=== PATIENT | female | born 2000 | race Caucasian/White ===

== ENCOUNTER 2020-04-22 23:03 | Emergency (ER) | payer OTHER, SELFPAY ==
[2020-04-22] MEDS ORDERED: NA CHLORIDE 0.9% 1,000 ML ONE (23:43)
[2020-04-23 00:02] LABS: Absolute Lymphocytes (CBC) 1.8 K/uL (0.7-4.9); Hematocrit 42.8 % (36.0-45.0); Lymphocytes % 24.5 % (15.3-44.8); MPV 9.2 fL (7.6-11.3); RBC Red Blood Cell Count 4.86 M/uL (3.86-4.86)
[2020-04-23 00:13] LABS: BUN Blood Urea Nitrogen 10 mg/dL (7-18); Bicarbonate 24 mmol/L (21-32); Glucose Level 93 mg/dL (74-106); HCG, Quantitative 102 mIU/mL (1-3); Potassium 3.8 mmol/L (3.5-5.1); Sodium Level 143 mmol/L (136-145)
--- NOTE | 2020-04-23 00:40 | ER ---
Nurse's Notes [facility] Name: Miya Banner Age: 19 yrs Sex: Female : 2000 Arrival Date: 04/22/2020 Time: 23:07 Bed 20 Private MD: Diagnosis: Threatened Presentation: 04/22 23:12 Chief complaint: Patient states: Vag bleed, 4 wks PG. pt reports going to the bathroom ks7 at 2130 and noticed BRB in toilet and moderate amount of BRB on toilet paper. Pt c/o 12/21 lower abd pain. Denies N/V/D. Coronavirus screen: Client denies travel out of the [place] in the last 14 days. At this time, the client does not indicate any symptoms associated with coronavirus-19. The client denies any previous COVID testing. Ebola Screen: Patient negative for fever greater than or equal to 101.5 degrees Fahrenheit, and additional compatible Ebola Virus Disease symptoms Patient denies exposure to infectious person. Patient denies travel to an Ebola-affected area in the 21 days before illness onset. Initial Sepsis Screen: Does the patient meet any 2 criteria? No. Patient's initial sepsis screen is negative. Does the patient have a suspected source of infection? No. Patient's initial sepsis screen is negative. Risk Assessment: Do you want to hurt yourself or someone else? Patient reports no desire to harm self or others. Onset of symptoms was April 22, 2020 at 21:30. 23:12 Method Of Arrival: Ambulatory ks7 23:12 Acuity: GERARD 3 ks7 Triage Assessment: 23:22 General: Appears in no apparent distress. Behavior is calm, cooperative. Pain: ks7 Complains of pain in abdomen and pelvis Pain currently is 4 out of 10 on a pain scale. Quality of pain is described as crampy, Is intermittent. : Reports vaginal bleeding that is bright red, spotty, since 2129 tonight. CLIENT COORDINATOR: 23:22 1, LMP 03/20/2020 ks7 04/23 00:04 1, Full Term 0, Premature 0, 0, Living 0 eyal Historical: - Allergies: 04/22 23:22 No Known Allergies; ks7 - Home Meds: 23:22 Vitamin Oral tab 1 tab once daily [Active]; ks7 - PMHx: 23:22 Rheumatoid Arthritis; ks7 - Immunization history:: Adult Immunizations up to date. - Social history:: Smoking status: Patient denies any tobacco usage or history of. - Family history:: not pertinent. Screenin:25 Abuse screen: Denies threats or abuse. Denies injuries from another. Nutritional ks7 screening: No deficits noted. Tuberculosis screening: No symptoms or risk factors identified. Fall Risk None identified. Assessment: 23:25 Obstetrical Assessment: Patient reports abdominal cramping. ks7 23:25 Obstetrical Assessment: Patient reports vaginal bleeding starting at 2130 tonight.. ks7 04/23 00:00 Reassessment: Assumed care of patient from Silvia Lewis RN. Patient currently at ultrasound. 00:00 General: Appears in no apparent distress. uncomfortable, Behavior is cooperative, vc anxious. Pain: Denies pain. : Reports vaginal bleeding that is bright red, with clots. 00:00 Cardiovascular: Capillary refill < 3 seconds Patient's skin is warm and dry. 00:34 Reassessment: Patient appears in no apparent distress at this time. Patient and/or vc family updated on plan of care and expected duration. Pain level reassessed. Patient laying in bed with tears in her eyes, patient denies pain at this time. Vital Signs: 04/22 23:12 BP 118 / 67; Pulse 84; Resp 18; Temp 98.8(O); Pulse Ox 100% ; Weight 68.04 kg; Height 5 ks7 ft. 1 in. (154.94 cm); Pain 4/10; 23:12 Body Mass Index 28.34 (68.04 kg, 154.94 cm) ks7 Vitals: 04/23 00:01 Heart Tones patient only a few weeks , heart tones are not yet audible.. ED Course: 04/22 23:07 Patient arrived in ED. cf2 23:11 Conrado Nash MD is Attending Physician. eyal 23:12 Silvia Chase, RN is Primary Nurse. ks7 23:22 Triage completed. ks7 23:22 Arm band placed on left wrist. ks7 23:25 Patient has correct armband on for positive identification. Bed in low position. Call ks light in reach. Side rails up X2. 23:25 No provider procedures requiring assistance completed. ks7 23:25 Inserted saline lock: 20 gauge in right antecubital area, using aseptic technique. ks7 Blood collected. 23:58 Inserted. ks7 04/23 00:00 Primary Nurse role handed off by Silvia Chase, MALIK 00:00 Michelle Butler, MALIK is Primary Nurse. vc 00:10 Patient moved back from ultrasound. ks7 00:39 José Miguel Gray MD is Referral Physician. eyal 01:05 IV discontinued, intact, bleeding controlled, No redness/swelling at site. Pressure vc dressing applied. Administered Medications: 04/22 23:30 Drug: NS 0.9% 1000 ml Route: IV; Rate: 1 bolus; Site: right antecubital; ks7 04/23 00:30 Follow up: IV Status: Completed infusion; IV Intake: 1000ml vc Point of Care Testing: Urine : 00:35 hCG Reading: Positive; Control Reading: Positive; vc Intake: 00:30 IV: 1000ml; Total: 1000ml. vc Outcome: 00:39 Discharge ordered by . eyal 01:05 Discharged to home ambulatory. vc 01:05 Condition: good 01:05 Discharge instructions given to patient, Instructed on discharge instructions, follow up and referral plans. medication usage, Demonstrated understanding of instructions, follow-up care, medications, Prescriptions given X 1. 01:07 Patient left the ED. vc Signatures: Conrado Nash MD MD cha Frazier, Celesta cf2 Calcote, Vanessa, MALIK RN Silvia Chase, MALIK GAN ks7 Corrections: (The following items were deleted from the chart) 04/22 23:59 23:58 Inserted saline lock: 20 gauge in right antecubital area, using aseptic ks7 technique. Blood collected. ks7
--- NOTE | 2020-04-23 00:40 | EDPHYS ---
Physician Documentation [facility] Name: Miya Balderrama Age: 19 yrs Sex: Female : 2000 Arrival Date: 04/22/2020 Time: 23:07 Bed 20 Private MD: ED Physician Conrado Nash HPI: 04/23 00:04 This 19 yrs old Female presents to ER via Ambulatory with complaints of eyal Vaginal Bleeding, + Preg <12wks. 00:04 The patient presents to the emergency department with vaginal bleeding. [facility] 5 weeks. course: care: none. Previous pregnancies: the patient has never been . The patient has not experienced similar symptoms in the past. WELT SOLE LAYER: 04/22 23:22 1, LMP 03/20/2020 ks7 04/23 00:04 1, Full Term 0, Premature 0, 0, Living 0 eyal Historical: - Allergies: 04/22 23:22 No Known Allergies; ks7 - Home Meds: 23:22 Vitamin Oral tab 1 tab once daily [Active]; ks7 - PMHx: 23:22 Rheumatoid Arthritis; ks7 - Immunization history:: Adult Immunizations up to date. - Social history:: Smoking status: Patient denies any tobacco usage or history of. - Family history:: not pertinent. ROS: 04/23 00:04 Constitutional: Negative for fever, chills, and weight loss, Eyes: Negative for injury, eyal pain, redness, and discharge, ENT: Negative for injury, pain, and discharge, Neck: Negative for injury, pain, and swelling, Cardiovascular: Negative for chest pain, palpitations, and edema, Respiratory: Negative for shortness of breath, cough, wheezing, and pleuritic chest pain, Back: Negative for injury and pain, : Negative for injury, bleeding, discharge, and swelling, MS/Extremity: Negative for injury and deformity, Skin: Negative for injury, rash, and discoloration, Neuro: Negative for headache, weakness, numbness, tingling, and seizure, Psych: Negative for depression, anxiety, suicide ideation, homicidal ideation, and hallucinations, Allergy/Immunology: Negative for hives, rash, and allergies, Endocrine: Negative for neck swelling, polydipsia, polyuria, polyphagia, and marked weight changes, Hematologic/Lymphatic: Negative for swollen nodes, abnormal bleeding, and unusual bruising. Abdomen/GI: Positive for abdominal pain. Exam: 00:04 Constitutional: This is a well developed, well nourished patient who is awake, alert, eyal and in no acute distress. Head/Face: Normocephalic, atraumatic. Eyes: Pupils equal round and reactive to light, extra-ocular motions intact. Lids and lashes normal. Conjunctiva and sclera are non-icteric and not injected. Cornea within normal limits. Periorbital areas with no swelling, redness, or edema. ENT: Nares patent. No nasal discharge, no septal abnormalities noted. Tympanic membranes are normal and external auditory canals are clear. Oropharynx with no redness, swelling, or masses, exudates, or evidence of obstruction, uvula midline. Mucous membranes moist. Neck: Trachea midline, no thyromegaly or masses palpated, and no cervical lymphadenopathy. Supple, full range of motion without nuchal rigidity, or vertebral point tenderness. No Meningismus. Chest/axilla: Normal chest wall appearance and motion. Nontender with no deformity. No lesions are appreciated. Cardiovascular: Regular rate and rhythm with a normal S1 and S2. No gallops, murmurs, or rubs. Normal PMI, no JVD. No pulse deficits. Respiratory: Lungs have equal breath sounds bilaterally, clear to auscultation and percussion. No rales, rhonchi or wheezes noted. No increased work of breathing, no retractions or nasal flaring. Abdomen/GI: Soft, non-tender, with normal bowel sounds. No distension or tympany. No guarding or rebound. No evidence of tenderness throughout. Back: No spinal tenderness. No costovertebral tenderness. Full range of motion. Skin: Warm, dry with normal turgor. Normal color with no rashes, no lesions, and no evidence of cellulitis. MS/ Extremity: Pulses equal, no cyanosis. Neurovascular intact. Full, normal range of motion. Neuro: Awake and alert, GCS 15, oriented to person, place, time, and situation. Cranial nerves II-XII grossly intact. Motor strength 5/5 in all extremities. Sensory grossly intact. Cerebellar exam normal. Normal gait. Psych: Awake, alert, with orientation to person, place and time. Behavior, mood, and affect are within normal limits. Vital Signs: 08/10 23:12 BP 118 / 67; Pulse 84; Resp 18; Temp 98.8(O); Pulse Ox 100% ; Weight 68.04 kg; Height 5 ks7 ft. 1 in. (154.94 cm); Pain /10; 23:12 Body Mass Index 28.34 (68.04 kg, 154.94 cm) ks7 MDM: 23:11 [facility] screened. [facility] 04[facility] 00:06 Differential diagnosis: ectopic . Data reviewed: vital signs, nurses notes, [facility] lab test result(s), radiologic studies, ultrasound. Data interpreted: gambling monitor: rate is 84 beats/min, rhythm is regular, Pulse oximetry: on room air is 100 %. Test interpretation: by ED physician or midlevel provider:. Counseling: I had a detailed discussion with the patient and/or guardian regarding: the historical points, exam findings, and any diagnostic results supporting the discharge/admit diagnosis, lab results, radiology results, the need for outpatient follow up, for definitive care, an OB/Gyne specialist. 04/22 23:13 Order name: Quantitative Hcg [facility] 04/22 23:13 Order name: Abo/rh Typing [facility] 04/22 23:13 Order name: Basic Metabolic Panel [facility] 04/22 23:13 Order name: CBC with Diff [facility] 04/22 23:13 Order name: Urine Culture [facility] 04/23 00:12 Order name: CBC with Automated Diff; Complete Time: 00:38 [facility] 04/22 23:13 Order name: Urine Test (obtain specimen); Complete Time: 00:25 [facility] 04/22 23:13 Order name: US Transvaginal Ob [facility] 04/23 00:14 Order name: Basic Metabolic Panel; Complete Time: 00:38 [facility] 04/23 00:14 Order name: HCG, Quantitative; Complete Time: 00:38 [facility] 04/23 00:23 Order name: ABO/RH typing; Complete Time: 00:38 [facility] 04/23 00:38 Order name: Urine --Ancillary (enter results) [facility] 04/23 00:40 Order name: Urine Dipstick--Ancillary (enter results) [facility] 04/22 23:13 Order name: IV Saline Lock; Complete Time: 23:28 [facility] 04/22 23:13 Order name: Labs collected and sent; Complete Time: 23:28 [facility] 04/22 23:13 Order name: NPO; Complete Time: 23:28 [facility] 04/22 23:13 Order name: Urine Dipstick-Ancillary (obtain specimen); Complete Time: 00:25 [facility] Administered Medications: 04/22 23:30 Drug: NS 0.9% 1000 ml Route: IV; Rate: 1 bolus; Site: right antecubital; ks7 04/23 00:30 Follow up: IV Status: Completed infusion; IV Intake: 1000ml vc Point of Care Testing: Urine : 00:35 hCG Reading: Positive; Control Reading: Positive; vc Disposition: 04/23/20 00:39 Discharged to Home. Impression: Threatened . - Condition is Stable. - Discharge Instructions: Threatened Miscarriage, Vaginal Bleeding During , First Trimester, First Trimester of , [id number], Threatened Miscarriage, [id number], Pelvic Rest. - Prescriptions for Vitamin 27- 0.8 mg Oral Tablet - take 1 tablet by ORAL route once daily; 30 tablet. - Medication Reconciliation Form, Thank You Letter, Antibiotic Education, Prescription Opioid Use form. - Follow up: Private Physician; When: 2 - 3 days; Reason: Recheck today's complaints, Continuance of care, Re-evaluation by your physician. Follow up: José Miguel Gray; When: 2 - 3 days; Reason: Recheck today's complaints, Continuance of care, Re-evaluation by your physician. - Problem is new. - Symptoms have improved. Signatures: Dispatcher [employer] EDConrado Cuevas MD MD cha Calcote, Vanessa RN Silvia Duong vc, RN RN ks7 Corrections: (The following items were deleted from the chart) 01:07 00:39 04/23/2020 00:39 Discharged to Home. Impression: Threatened . Condition vc is Stable. Discharge Instructions: Threatened Miscarriage, Vaginal Bleeding During , First Trimester, First Trimester of , [id number], Threatened Miscarriage, [id number], Pelvic Rest. Prescriptions for Vitamin 27-0.8 mg Oral Tablet - take 1 tablet by ORAL route once daily; 30 tablet. and Forms are Medication Reconciliation Form, Thank You Letter, Antibiotic Education, Prescription Opioid Use. Follow up: Private Physician; When: 2 - 3 days; Reason: Recheck today's complaints, Continuance of care, Re-evaluation by your physician. Follow up: José Miguel Gray; When: 2 - 3 days; Reason: Recheck today's complaints, Continuance of care, Re-evaluation by your physician. Problem is new. Symptoms have improved. eyal
[2020-04-23 01:13] VITALS: BP 118/67; TEMP 98.8; O2SAT 100
--- NOTE | 2020-04-23 08:08 | RAD REPORT ---
EXAM DESCRIPTION: US - Transvaginal OB - 04/23/2020 6:58 am CLINICAL HISTORY: vaginal bleeding, positive study, possible miscarriage COMPARISON: No comparisons FINDINGS: No intrauterine gestational sac or sac remnant identifiable. Endometrial stripe is maximum 5 mm in thickness. There is a trace amount of fluid or old blood in the cervix and lower uterine seg ment. No retained products of conception identifiable. Uterine size is normal. No myometrial mass. A large 4.2 centimeter anechoic left ovarian cyst is present. Right ovary is unremarkable. No finding s to suspect ectopic . IMPRESSION: No intrauterine gestational sac or sac remnant. No retained products of conception seen. Patient has a large 4.2 centimeter anechoic left ovarian cyst. No suspicion for ectopic .
[2020-04-23 11:01] LABS: Urine Blood 2+ (NEG); Urine Glucose NEGATIVE (NEG); Urine Protein NEGATIVE (NEG); Urine Specific Gravity >1.030 (1.005-1.030); Urine pH 5.5 (5.0-7.0)
[2020-04-23 11:02] LABS: Urine Specific Gravity >1.030 (1.005-1.030)
== END 2020-04-23 01:07 | disposition home or self-care (01) ==
LOC: ER 23:03
DX: O20.0 Threatened abortion (principal); Z3A.01 Less than 8 weeks gestation of pregnancy
CPT/HCPCS: 36415; 76817; 80048; 81003; 81025; 84702; 85025; 86900; 86901; 96360; 99284; J7030

== ENCOUNTER 2022-05-23 17:30 | Emergency (ER) | payer OTHER, SELFPAY ==
--- OUTSIDE RECORDS SUMMARY | 2022-05-23 17:34 | XMS REPORT | Continuity of Care Document ---
:2000 Author Organization [facility] t Address [address] [place] [address] Care Team Providers Name Role Phone Tiffany Nicholson Primary Care Physician YOKASTA PHILIPPE Attending Clinician Unavailable Mita Brumfield MA Attending Clinician Unavailable 5, [facility] Us Room Attending Clinician Unavailable Christian Ellison MD Attending Clinician CHRISTIAN ELLISON Attending Clinician Unavailable CHRISTIAN ELLISON Attending Clinician Unavailable Salbador Mark MD Attending Clinician SALBADOR MARK Attending Clinician Unavailable ALFREDO Attending Clinician Unavailable JULISSA GARZA Attending Clinician Unavailable LASHAUN BERG M.D. Attending Clinician Unavailable SALBADOR MARK Admitting Clinician Unavailable ALFREDO Admitting Clinician Unavailable Payers Payer Name Policy Type Policy Number Effective Date Expiration Date [facility] [id number] 2022 [facility] MEDICAID 00:00:00 [place] CHILDRENS [id number] 2019 HEALTH 00:00:00 Problems Condition Condition Condition Status Onset Resolution Last Treating Co mments Source Name Details Category Date Date Treatment Clinician Date Supervisio Supervisio Disease Active U nivers n of n of 8-31 it[place] of high[place] Med[place] with with Branch insufficie insufficie nt nt care in care in third third trimester trimester Gastroesop Gastroesop Disease Active U nivers hageal hageal 05-13 ity of reflux reflux 00:00: [place] disease, disease, 00 Medica l unspecifie unspecifie Br anch d whether d whether esophagiti esophagiti s present s present Anxiety Anxiety Disease Active Univers disorder, disorder, 05-13 ity of [place] type d type 00 Medical Branch Depression Depression Disease Active U nivers during during 05-13 [place] in third in third 00 Medica l trimester trimester Bran ch Left ankle Left ankle Disease Active U nivers injury injury 05-19 ity of 00:00: [place] 00 Medical Branch History 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 ans Pain and Pain and Problem Active UT swelling swelling Physic i of right of right ans knee knee 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 Phys ici ans Long-term Long-term Problem Active UT use of use of Physici high-risk high-risk ans medication medication Allergies, Adverse Reactions, Alerts Allergy Allergy Status Severity Reaction(s) Onset Inactive Treating Comm ents Source Name Type Date Date Clinician NO KNOWN Drug Active Univers ALLERGIE Class ity of S [facility] Family History Family Member Diagnosis Comments Start Date Stop Date Source Unknown Family Family history of Family History [facility] Member cardiac disorder Unknown Family Family history of Family History [facility] Member diabetes mellitus Social History Social Habit Start Date Stop Date Quantity Comments Source ASSERTION 2021-10-30 [facility] 00:00:00 [facility] Exposure to 2022-05-03 2022-05-13 Not sure [facility] SARS-CoV-2 00:00:00 08:52:00 [facility] (event) [place] Tobacco use and 2022-05-13 2022-05-13 Smokeless tobacco Un iversity of exposure 00:00:00 00:00:00 non-user [facility] Alcohol intake 2022-05-13 2022-05-13 Ex-drinker University of 00:00:00 00:00:00 (finding) [facility] Tobacco Comment 2022-05-13 2022-05-13 Half a pack per [facility] ersity of 00:00:00 00:00:00 day [facility] History of 2022-02-11 Passive smoker University of tobacco use 00:00:00 [facility] Sex Assigned At 2000 2000 Universit y of 00:00:00 00:00:00 [facility] Smoking Status Start Date Stop Date Source Tobacco smoking [place] consumption unknown Medical Bran ch Never smoker [facility] Ex-smoker 2022-05-13 00:00:00 2022-05-13 [place] f [place] 00:00:00 [facility] Medications Ordered Filled Start Stop Current Ordering Indication Dosage Frequency Signature Comments Components Source Medication Medication Date Date Medication? Clinician (SIG) Name Name PNV Yes Take by Univers no.95/anam 8-31 mouth. ity of us 10:01: [place] fum/folic [address] [place] [address] ( ORAL) PNV 0 Yes Take by Univers no.95/anam 8-31 mouth. ity of us 10:01: [place] fum/folic [address] [place] [address] ( ORAL) PNV 0 Yes Take by Univers no.95/anam 8-31 mouth. ity of us 10:01: [place] fum/folic [address] [place] [address] ( ORAL) famotidine 2021-0 Yes [id number] 20mg Take 1 Univers 20 mg 8-31 tablet by ity of tablet 00:00: mouth in [place] [address] the Medical morning Branch and 1 tablet in the evening. busPIRone 2021-0 Yes [id number] 7.5mg Take 1 Univers 7.5 mg 8-31 tablet by ity of tablet 00:00: mouth in [place] [address] the Medical morning Branch and 1 tablet in the evening. famotidine 2021-0 Yes [id number] 20mg Take 1 Univers 20 mg 8-31 tablet by ity of tablet 00:00: mouth in [place] [address] the Medical morning Branch and 1 tablet in the evening. busPIRone 2021-0 Yes [id number] 7.5mg Take 1 Univers 7.5 mg 8-31 tablet by ity of tablet 00:00: mouth in [address] Medical morning Branch and 1 tablet in the evening. famotidine Yes [id number] 20mg Take 1 Univers 20 mg 8-31 tablet by ity of tablet 00:00: mouth in [place] 00 the Medical morning Branch and 1 tablet in the evening. busPIRone Yes [id number] 7.5mg Take 1 Univers 7.5 mg 8-31 tablet by ity of tablet 00:00: mouth in [place] 00 the [facility] morning Branch and 1 tablet in the evening. Rasuvo 15 Rasuvo 15 2018-09 Yes FAYYAZ Inject UT MG/0.3ML MG/0.3ML 0-17 AHMED M.D. 15mg subq Physici Subcutaneou Subcutaneou 00:00: once ans s Solution s Solution 00 weekly. Auto-inject Auto-inject or or Folic Acid Folic Acid Yes FAYYAZ QD TAKE 1 UT 1 MG Oral 1 MG Oral 9-12 AHMED M.D. TABLET BY Physici Tablet Tablet 00:00: MOUTH ans 00 DAILY DIRECTED Naproxen Naproxen Yes FAYYAZ Q12H TAKE 1 U T 375 MG Oral 375 MG Oral 9-12 AHMED M.D. TABLET Physici Tablet Tablet 00:00: EVERY 12 ans 00 HOURS NEEDED. acetaminoph Yes TK 1 T PO U nivers en-codeine 05-11 Q 6 H PRN ity of 300-30 mg 00:00: P. [place] tablet 00 [facility] acetaminoph 2021- No TK 1 T PO Univers en-codeine 05-11- Q 6 H PRN ity of 300-30 mg 00:00: 00:00 P. [place] tablet 00 :00 [facility] Vital Signs Vital Name Observation Time Observation Value Comments Source Systolic blood 2022-05-13 14:59:00 105 mm[Hg] Univer sity of pressure [facility] Diastolic blood 2022-05-13 14:59:00 72 [facility]Hg[facility] 2022-05-13 14:59:00 108 /min [facility] Body temperature 2022-05-13 14:59:00 [facility].72 [facility] height 2022-05-13 14:59:00 152.4 cm [facility] Body weight 2022-05-13 14:59:00 77.656 kg [facility] BMI 2022-05-13 14:59:00 33.44 kg/m2 [facility] BP Systolic 2019-08-03 10:47:00 113 mm[Hg] [facility] BP Diastolic 2019-08-03 10:47:00 72 mm[Hg] [facility] Height 2019-08-03 10:47:00 61 [in_us] [facility] Weight 2019-08-03 10:47:00 145 [lb_av] [facility] Body Mass Index 2019-08-03 10:47:00 27.4 kg/m2 [facility] Calculated Heart Rate 2019-08-03 10:47:00 79 /min [facility] BP Systolic 2019-06-29 10:35:00 125 mm[Hg] [facility] BP Diastolic 2019-06-29 10:35:00 82 mm[Hg] [facility] Height 2019-06-29 10:35:00 60 [in_us] [facility] Weight 2019-06-29 10:35:00 150 [lb_av] [facility] Body Mass Index 2019-06-29 10:35:00 29.3 kg/m2 [facility] Calculated Heart Rate 2019-06-29 10:35:00 101 /min [facility] BP Systolic 2019-05-25 10:21:00 114 mm[Hg] [facility] BP Diastolic 2019-05-25 10:21:00 74 mm[Hg] [facility] Height 2019-05-25 10:21:00 60 [in_us] [facility] Weight 2019-05-25 10:21:00 150 [lb_av] [facility] Body Mass Index 2019-05-25 10:21:00 29.3 kg/m2 [facility] Calculated Heart Rate 2019-05-25 10:21:00 72 /min [facility] Procedures Procedure Date / Time Performing Clinician Source Performed SECOND AND THIRD 2022-05-19 16:44:00 Salbador Mark [facility] TRIMESTER ULTRASOUND Medical [facility] POCT URINALYSIS W/O 2022-05-13 00:00:00 Mark, Salbador [facility] SPECIFIC [facility] [QLH] CBC (INCLUDES 2019-08-03 00:00:00 [facility] DIFF/PLT) [QLH] C-REACTIVE PROTEIN 2019-08-03 00:00:00 [facility] [QLH] CREATININE W/EGFR 2019-08-03 00:00:00 [facility] [QLH] HEPATIC FUNCTION 2019-08-03 00:00:00 [facility] PANEL [QLH] SED RATE BY 2019-08-03 00:00:00 [facility] ans MODIFIED WESTERGREN [QLH] UREA NITROGEN 2019-08-03 00:00:00 [facility] (BUN) [QLH] HEPATIC FUNCTION 2019-05-25 00:00:00 [facility] PANEL [QLH] CBC (INCLUDES 2019-05-25 00:00:00 [facility] DIFF/PLT) [QLH] C-REACTIVE PROTEIN 2019-05-25 00:00:00 [facility] [QLH] CREATININE W/EGFR 2019-05-25 00:00:00 [facility] [QLH] SED RATE BY 2019-05-25 00:00:00 [facility] ans MODIFIED WESTERGREN [QL] JEOVANNY SCREEN IFA 2019-05-25 00:00:00 [facility] W/REFL TITER IFA [QH] HEPATITIS B SURFACE 2019-05-25 00:00:00 [facility] ANTIGEN W/REFL CONFIRM [QLH] HEPATITIS C 2019-05-25 00:00:00 [facility] ans ANTIBODY [QLH] UREA NITROGEN 2019-05-25 00:00:00 [facility] (BUN) [QH] CYCLIC 2019-05-25 00:00:00 [facility] s CITRULLINATED PEPTIDE (CCP) AB (IGG) [QLH] HLA-B27, DNA 2019-05-25 00:00:00 [facility] ians TYPING [QLH] RHEUMATOID FACTOR 2019-05-25 00:00:00 [facility] [QL] QUANTIFERON(R)-TB 2019-05-25 00:00:00 [facility] GOLD [QLH] SJOGRENS 2019-05-25 00:00:00 [facility] ANTIBODIES (SS-A,SS-B) XRAY Knee 3 views [id number] 2019-05-25 00:00:00 [facility] History of Ankle surgery [facility] Plan of Care Planned Activity Planned Date Details Comments Source Diagnostic Test 2019-11-20 00:00:00 [QLH] CBC (INCLUDES [facility] Pending DIFF/PLT) [code = [QLH] CBC (INCLUDES DIFF/PLT)] Diagnostic Test 2019-11-20 00:00:00 [QLH] C-REACTIVE [facility] Pending PROTEIN [code = [QLH] C-REACTIVE PROTEIN] Diagnostic Test 2019-11-20 00:00:00 [QLH] CREATININE [facility] Pending W/EGFR [code = [QLH] CREATININE W/EGFR] Diagnostic Test 2019-11-20 00:00:00 [QLH] HEPATIC [facility] Pending FUNCTION PANEL [code = [QLH] HEPATIC FUNCTION PANEL] Diagnostic Test 2019-11-20 00:00:00 [QLH] UREA NITROGEN [facility] Pending (BUN) [code = [QLH] UREA NITROGEN (BUN)] Diagnostic Test 2019-11-20 00:00:00 [QLH] SED RATE BY [facility] Pending MODIFIED WESTERGREN [code = [QLH] SED RATE BY MODIFIED WESTERGREN] Encounters Start End Encounter Admission Attending Care Care Encounter Source Date/Time Date/Time Type Type Clinicians Facility Department ID 2022-05-26 2022-05-26 Outpatient Martine PHILIPPE [facility] [id number] Univers 14:45:00 14:45:00 YOKASTA [id number] [facility] 2022-05-26 2022-05-26 Outpatient Martine PHILIPPE [facility] [id number] Univers 14:45:00 14:45:00 YOKASTA [facility] 2022-05-22 2022-05-22 Patient Brissa, [facility] GU[facility] [id number] Univers 00:00:00 00:00:00 Secure Msg Mita LONG [id number] ity of PEDIATRIC [id number] [place] [facility] [id number] [address] 2022-05-19 2022-05-19 Financial Sales Associate 5, [facility] Us Room UNIVERSIT [id number] Univers 11:00:00 11:55:55 Visit Christian Ellison [facility] [id number] ity of CLINICS [id number] [id number] [facility] [address] [place] 2022-05-19 2022-05-19 Outpatient R [facility] [id number] Univers 11:00:00 11:00:00 [id number] ity of [facility] 2022-05-19 2022-05-19 Outpatient P CHRISTIAN ELLISON [facility] [id number] Univers 11:00:00 11:00:00 CHRISTIAN ELLISON ity of [facility] 2022-05-13 2022-05-13 [facility] [id number] Univers 10:00:00 11:06:33 Ben LICONA [id number] ity of Visit [id number] [facility] [id number] [place] [address] 2022-05-13 2022-05-13 Outpatient R MARK [facility] [id number] Univers 10:00:00 11:06:33 ity of [facility] 2022-05-13 2022-05-13 Outpatient R JAS [facility] [id number] Univers 10:00:00 10:00:00 [id number] ity [facility] 2022-05-08 2022-05-08 [facility] Jas [facility] [id number] Univers 15:24:08 23:59:00 Encounter Cam ANGLESHARI [id number] ity of [id number] [id number] [facility] [address] 2022-05-08 2022-05-08 Outpatient R JAS [facility] [id number] Univers 15:24:08 23:59:00 ity of [facility] 2022-05-08 2022-05-08 Outpatient R JAS [facility] [id number] Univers 15:45:00 15:45:00 [id number] ity [facility] 2022-05-04 2022-05-04 Outpatient SALBADOR GUZMAN [facility] [id number] Univers 16:15:00 16:15:00 [id number] [facility] 2022-05-04 2022-05-04 Outpatient SALBADOR GUZMAN [facility] [id number] Univers 00:00:00 00:00:00 [facility] 2021-08-13 2021-08-13 Outpatient FRANCO_HOLLAND GARCÍA [facility] [id number] [place] 05:53:00 05:53:00 SSA [facility] 2020-05-06 2020-05-06 Outpatient R KAYLA [facility] [id number] Univers 14:30:00 14:30:00 JULISSA [id number] [facility] 2020-05-06 2020-05-06 Outpatient R KAYLA [facility] [id number] Univers 14:30:00 14:30:00 JULISSA [facility] 2020-04-17 2020-04-17 Outpatient SWEETIE GARCÍA [facility] [id number] [place] 04:00:00 04:00:00 SSA [facility] 2019-08-03 2019-08-03 Appointmen CORINNA BERG [facility] [id number] [place] 10:45:00 10:45:00 t; LASHAUN BERG lty - Phys ici FAYYAZ, M.D. [place] ans M.D. 2019-06-29 2019-06-29 Appointmen CORINNA BERG [facility] [id number] [place] 11:00:00 11:00:00 t; LASHAUN BERG lty - Phys ici FAYYAZ, M.D. [place] ans M.D. 2019-05-25 2019-05-25 Appointmen CORINNA BERG [facility] [id number] [place] 10:00:00 10:00:00 t; LASHAUN BERG lty - Phys ici FAYYAZ, M.D. [place] ans M.D. Results Test Description Test Time Test Comments Results Result Comments Source POCT URINALYSIS W/O SPECIFIC GRAVITY 2022-05-13 15:18:00 Test Item Value Reference Range Interpretation Comme nts POCT PH U (test code = 3254) n/a 5-8 POCT U LEUK EST (test code = 3263) n/a Negative - Negative POCT U NIT (test code = 3262) n/a Negative - Negative POCT U PROT (test code = 3259) Negative Negative - Negative POCT U GLU (test code = 3256) normal Negative - Negative POCT U KETONE (test code = 3258) n/a Negative - Negative POCT U BLD (test code = 3257) n/a Negative - Negative [facility] [id number] 16:21:12 Test Item Value Reference Range Interpretation Comments VARICELLA ZOSTER IgG 15 INDEX SEE BELOW L INTERP RETATION VZV IgG (test code = 09195) NEGATIVE . . . . . . . . . . . . INDEX <135 EQUIVOCAL. . . . . . . . . . . . INDEX 1 35-164 NOTE: CONSIDER RETESTING IN A CLINICALLY SUITABLE PERIOD OF TIME, NO SOONER THAN 1-2 WEEKS. POSITIVE . . . . . . . . . . . . INDEX >=165 GLUCOSE, 1 HR, GESTATIONAL SCREEN, 50 GM [id number] 08:16:58 Test Item Value Reference Range Interpretation Comments GLUCOSE 1 HR POST 114 MG/DL <140 UNLESS OT HERWISE 50 GM (test code = INDICATED , ALL TESTING 2005) PERFORMED [facility] [address] [place], [place] [address]A [facility] DIRECTOR: RACH BARNES M.D. IA NUMBER [id number] CAP ACCREDITATION N O. [id number] OBSTETRIC PANEL + [id number] 06:09:56 Test Item Value Reference Range Interpretation Comments WBC (test code = 11.4 K/UL 3.5-11.0 H 1001) RBC (test code = 3.48 M/UL 3.80-5.40 L 1002) HEMOGLOBIN (test 10.5 G/DL 11.5-15.5 L code = 1003) HEMATOCRIT (test 30.9 % 34.0-45.0 L code = 1004) MCV (test code = 88.8 fL 80.0-99.0 1005) MCH (test code = 30.2 PG 25.0-33.0 1006) MCHC (test code = 34.0 G/DL 31.0-36.0 1007) RDW (test code = 12.1 % 11.5-15.0 1038) NEUTROPHILS (test 75.4 % code = 1008) LYMPHOCYTES (test 15.8 % code = 1010) MONOCYTES (test 5.3 % code = 1011) EOSINOPHILS (test 2.6 % code = 1012) BASOPHILS (test 0.9 % code = 1013) PLATELET COUNT 350 K/UL 130-400 (test code = 1015) ABSOLUTE 8.17 K/UL 1.50-7.50 H NEUTROPHILS (test code = 1066) ABSOLUTE 1.53 K/UL 1.00-4.00 LYMPHOCYTES (test code = 1067) ABSOLUTE MONOCYTES 0.64 K/UL 0.20-1.00 (test code = 1068) ABSOLUTE 0.38 K/UL 0.00-0.50 EOSINOPHILS (test code = 1040) ABSOLUTE BASOPHILS 0.09 K/UL 0.00-0.20 (test code = 1069) ABS IMMATURE 0.60 K/UL 0.00-0.10 H GRANULOCYTES (test code = 1020) ABS NUCLEATED RBCS 0.00 K/UL 0.00-0.11 (test code = 58182) COMMENTS (test code (NOTE) SLIGHT TOXIC = 1016) GRANULATION PLATELETS APPEA R NORMAL BLOOD TYPE AND RH A POSITIVE A HISTORI MARGARETTE RECORD (test code = 3901) CHECK FOR PREVIOUS RESULTS IS NOT PERFORMED.THESE RESULTS SHOULD BE CORRELATED WITH RESULTS OF PRIO R BLOODTYPING AND ANTIBODY SCREEN STUDIES. ANTIBODY SCREEN NEGATIVE NEGATIVE A HISTORICA L RECORD (test code = 3902) CHECK FOR PREVIOUS RESULTS IS NOT PERFORMED.THESE RESULTS SHOULD BE CORRELATED WITH RESULTS OF PRIO R BLOODTYPING AND ANTIBODY SCREEN STUDIES. RUBELLA ANTIBODY 43 IU/ML SEE BELOW INTERPRET ATION SCREEN (test code = RUBELLA IgG 4600) NON-REACTIVE/NO N-IMM UNE . . . . . . . IU/ML <10 REACTIVE/IMMUNE . . . . . . . . . . . IU/ML >=10 RUBELLA IgG INTERP REACTIVE REACTIVE (test code = 79335) HEPATITIS B SURF AG NON-REACTIVE NON-REACTIVE (test code = 2739) RPR (test code = NON-REACTIVE NON-REACTIVE 24466) RPR TITER (test NOT INDIC. NOT INDIC. code = 3500) TITER HIV 1/2 4TH GEN, NON-REACTIVE NON-REACTIVE RFLX CONF (test code = 3514) HEPATITIS C REFLEX [id number] 06:09:56 Test Item Value Reference Range Interpretation Comments HEPATITIS C ANTIBODY (test code NON-REACTIVE NON-REACTIVE = 4675) DRUG ABUSE SCREEN 10 REFLEX [id number] 05:48:51 Test Item Value Reference Range Interpretation Comments AMPHETAMINES (test NEGATIVE NEGATIVE code = 3201) BARBITURATES (test NEGATIVE NEGATIVE code = 3202) BENZODIAZEPINES (test NEGATIVE NEGATIVE code = 3203) CANNABINOIDS (test NEGATIVE NEGATIVE code = 3204) COCAINE METABOLITE NEGATIVE NEGATIVE (test code = 3205) OPIATES (test code = NEGATIVE NEGATIVE 3209) OXYCODONE (test code NEGATIVE NEGATIVE = 40616) PHENCYCLIDINE (test NEGATIVE NEGATIVE code = 3210) METHADONE (test code NEGATIVE NEGATIVE = 3207) BUPRENORPHINE (test NEGATIVE NEGATIVE code = 46992) SOURCE (test code = URINE SEE BELOW FOR 000496) THRESHOLDS AND IMPORTANT METHOD NOTES * ANALYTE SCREENING CUTOF F CONFIRMATORY CUTOFF AMPHETAMINES 50 0 NG/ML 100 NG/MLBARBIT URATES 200 NG/ML 100 NG/MLBENZODIAZE PINES 200 NG/ML 100 NG/MLCANNABINOI DS (THC) 20 NG/ML 15 NG/ MLCOCAINE METABOLITES 150 NG/ML 100 NG/MLOPIATE MET ABOLITES 300 NG/ML 100 NG/MLOXYCODONE 100 NG/ML 100 NG/MLPHENCY CLIDINE (PCP) 25 NG/ML 25 NG/MLMETHADONE 300 NG/ML 100 NG/MLBUPREN ORPHINE 5 NG/ML 5 NG/ML N OTE: Screening metho dology is qualitative Enz yme Immunoassay.The screening method may be l ess sensitive for c ertain medicationsincl uding clonazepam and lorazepam in the benzodia zepine assay andtramad ol or fentanyl in the opiate assay, amongst others. Patientcomplian ce, hydration statu s, timing and dose of med ications, drugabsorption and specimen qualit y may affect screenin g assay.For clini margarette discrepancies, consider directed testin g for specificcompoun ds or contact the lab oratory within specimen stability toforward for confirmatory te sting. This test is sp ecified for medicalpurp oses only. It is not valid for forensic use. [id number] 05:21:26 Test Item Value Reference Range Interpretation Comments RPR RESULT (test code = NON-REACTIVE NON-REACTIVE 3501) RPR TITER (test code = 3500) NOT INDIC. TITER NOT INDIC. CULTURE, [id number] 06:58:14SPECIMEN NUMBER: [id number] CULTURE, URINE SPECIMEN NUMBER: [id number] SPECIMEN COMMENT: URINE SOURCE:URINE REPORT STATUS: FINAL FINAL REPORT: 04/25/2022 10-50,000 CFU/ML UROGENITAL CURTIS PRESENT NO COMM ON PATHOGENS UNLESS OTHERWISE INDICATED, ALL TESTING PERFORMED [facility] [employer] [employer] [address] [place] [address] MOTORCYCLE MAKER: RACH BARNES M.D. CLIA NUMBER [id number] [place]. [id number] TEST, THINPREP, [id number] 21:58:35 Test Item Value Reference Range Interpretation Comments SOURCE: (test Cervical/Endo code = 8001) cervical SLIDES: (test 1 code = 8011) LMP: (test code = 10/16/2021 8021) SPECIMEN (NOTE) Satisfactory f or ADEQUACY: (test evaluation. code = 73687) Endocervical cells/transform ation zone component present. INTERPRETATION: NILM/NO (test code = EPITH. --------- 39570) ABNORMALITY;S -------- EE BELOW NEGATIVE FO R INTRAEPITHELIAL LESION OR MALIGNANCY ( NILM) --------- --------- --------- - MERCHANDISE FLOW TEAM LEADER: Ceci (test code = Brian, 8101) CT(ASCP) LOCATION: (test (NOTE) Specimens pr ocessed and code = 80494) interpreted at [facility], [address] [place] [address], , CLIA: [id number] CPT: (test code = (NOTE) 96707 UNLE SS OTHERWISE 8140) INDICATED, COMP UTER AIDED AND CYTOTECHNOLOGIS T SCREENING PERFO RMED. The Pap test is a s creening test with an in herent, but low probabi lity of error. Your pat ient should be remin ded to consult you imm ediately if she experien negar any suspicious sign s or symptoms, regar dless of her Pap test re sult. An alternate repor t format containing imag es or consolidated pr ior Pap history is avai lable as applicable. UNL ESS OTHERWISE INDIC ATED, ALL TESTING PERFORM ED [facility], I [place]. [address] [place] [address] LABORATORY DIRE CTOR: RACH SKY M.D. CLIA NUMBER [id number] [place] [id number] CT/NG, TMA, [id number] 21:54:17 Test Item Value Reference Range Interpretation Comments GONORRHEA, TMA NEGATIVE NEGATIVE Assay method ology is (test code = nucleic acid am plification 08282) by transcriptio n mediated amplification ( TMA) utilizing the A ptima Combo 2 Assay. CHLAMYDIA, TMA NEGATIVE NEGATIVE Assay method ology is (test code = nucleic acid am plification 75785) by transcriptio n mediated amplification ( TMA) utilizing the A ptima Combo 2 Assay. [[facility]] CBC (INCLUDES DIFF/PLT)2019-08-03 11:51:00 Test Item Value Reference Range Interpretation Comments WHITE BLOOD CELL COUNT 6.4 {Thousand/u} 4.5-13.0 N (test code = WHITE BLOOD CELL COUNT) RED BLOOD CELL COUNT (test 4.53 {Million/uL} 3.80-5.10 N code = RED BLOOD CELL COUNT) HEMAGLOBIN; Normal (test 13.1 g/dl 11.5-15.3 N code = 83847-2) HEMATOCRIT; Normal (test 40.3 % 34.0-46.0 N code = 4544-3) MCV; Normal (test code = 89.0 fL 78.0-98.0 N 787-2) MCHC; Normal (test code = 32.5 g/dl 31.0-36.0 N 68056-4) RDW; Normal (test code = 13.4 % 11.0-15.0 N 788-0) PLATELET COUNT; Normal 396 {Thousand/u} 140-400 N (test code = 777-3) MPV; Normal (test code = 10.4 fL 7.5-12.5 N 25051-3) ABSOLUTE NEUTROPHILS (test 3789 {cells/uL} 1428-5331 N code = ABSOLUTE NEUTROPHILS) ABSOLUTE LYMPHOCYTES (test 1856 {cells/uL} 7172-3101 N code = ABSOLUTE LYMPHOCYTES) ABSOLUTE MONOCYTES (test 422 {cells/uL} 200-900 N code = ABSOLUTE MONOCYTES) ABSOLUTE EOSINOPHILS (test 250 {cells/uL} 15-500 N code = ABSOLUTE EOSINOPHILS) ABSOLUTE BASOPHILS (test 83 {cells/uL} 0-200 N code = ABSOLUTE BASOPHILS) NEUTROPHILS (test code = 59.2 % N NEUTROPHILS) LYMPHOCYTES (test code = 29.0 % N LYMPHOCYTES) MONOCYTES; Normal (test 6.6 % N code = 14745-3) EOSINOPHILS; Normal (test 3.9 % N code = 59979-8) BASOPHILS; Normal (test 1.3 % N code = 12608-0) [facility][QL] UREA NITROGEN (BUN)2019-08-03 11:51:00 Test Item Value Reference Range Interpretation Comments UREA NITROGEN (BUN) (test code = 13 mg/dl 7-20 N UREA NITROGEN (BUN)) [facility][QL] CREATININE [id number] 11:51:00 Test Item Value Reference Range Interpretation Comments CREATININE (test code = 0.66 mg/dl 0.50-1.00 N CREATININE) eGFR NON- 129 {ML/MIN/1.7} > OR = 60 N (test code = eGFR NON-) eGFR (test 149 {ML/MIN/1.7} > OR = 60 N code = eGFR ) [facility]] HEPATIC FUNCTION [id number] 11:51:00 Test Item Value Reference Range Interpretation Comments PROTEIN, TOTAL (test code = 6.4 g/dl 6.3-8.2 N PROTEIN, TOTAL) ALBUMIN (test code = ALBUMIN) 4.4 g/dl 3.6-5.1 N GLOBULIN (test code = 2.0 {G/DL CALC} 2.0-3.8 N GLOBULIN) ALBUMIN/GLOBULIN RATIO (test 2.2 {CALC} 1.0-2.5 N code = ALBUMIN/GLOBULIN RATIO) BILIRUBIN, DIRECT; Normal 0.1 mg/dl < OR = 0.2 N (test code = 30191-5) BILIRUBIN, INDIRECT; Normal 0.2 {MG/DL MARGARETTE} 0.2-1.1 N (test code = 1971-1) ALKALINE PHSPHATASE (test 59 u/l 47-176 N code = ALKALINE PHSPHATASE) AST; Below Low Threshold 11 u/l 12-32 (test code = 1916-6) ALT; Normal (test code = 10 u/l 5-32 N 1742-6) [facility]] C-REACTIVE [id number] 11:51:00 Test Item Value Reference Range Interpretation Comments C-REACTIVE PROTEIN (test code = 0.8 mg/L <8.0 N C-REACTIVE PROTEIN) [facility]] SED RATE BY MODIFIED [id number] 11:51:00 Test Item Value Reference Range Interpretation Comments SED RATE BY MODIFIED WESTERGREN (test 2 mm/h < OR = 20 N code = SED RATE BY MODIFIED WESTERGREN) [facility]] UREA NITROGEN (BUN)2019-05-25 10:50:00 Test Item Value Reference Range Interpretation Comments UREA NITROGEN (BUN) (test code = 12 mg/dl 7-20 N UREA NITROGEN (BUN)) [facility]] CREATININE [id number] 10:50:00 Test Item Value Reference Range Interpretation Comments CREATININE (test code = 0.66 mg/dl 0.50-1.00 N CREATININE) eGFR NON- 129 {ML/MIN/1.7} > OR = 60 N (test code = eGFR NON-) eGFR (test 149 {ML/MIN/1.7} > OR = 60 N code = eGFR ) [facility]] HEPATIC FUNCTION [id number] 10:50:00 Test Item Value Reference Range Interpretation Comments PROTEIN, TOTAL (test code = 6.9 g/dl 6.3-8.2 N PROTEIN, TOTAL) ALBUMIN (test code = ALBUMIN) 4.4 g/dl 3.6-5.1 N GLOBULIN (test code = 2.5 {G/DL CALC} 2.0-3.8 N GLOBULIN) ALBUMIN/GLOBULIN RATIO (test 1.8 {CALC} 1.0-2.5 N code = ALBUMIN/GLOBULIN RATIO) BILIRUBIN, DIRECT; Normal 0.1 mg/dl < OR = 0.2 N (test code = 19700-8) BILIRUBIN, INDIRECT; Normal 0.5 {MG/DL MARGARETTE} 0.2-1.1 N (test code = 1971-1) ALKALINE PHSPHATASE (test 63 u/l 47-176 N code = ALKALINE PHSPHATASE) AST; Normal (test code = 13 u/l 12-32 N 1916-6) ALT; Normal (test code = 10 u/l 5-32 N 1742-6) [facility]] SED RATE BY MODIFIED [id number] 10:50:00 Test Item Value Reference Range Interpretation Comments SED RATE BY MODIFIED WESTERGREN (test 6 mm/h < OR = 20 N code = SED RATE BY MODIFIED WESTERGREN) [facility]] CBC (INCLUDES DIFF/PLT)2019-05-25 10:50:00 Test Item Value Reference Range Interpretation Comments WHITE BLOOD CELL COUNT 7.3 {Thousand/u} 4.5-13.0 N (test code = WHITE BLOOD CELL COUNT) RED BLOOD CELL COUNT (test 4.89 {Million/uL} 3.80-5.10 N code = RED BLOOD CELL COUNT) HEMAGLOBIN; Normal (test 13.9 g/dl 11.5-15.3 N code = 05144-2) HEMATOCRIT; Normal (test 42.9 % 34.0-46.0 N code = 4544-3) MCV; Normal (test code = 87.7 fL 78.0-98.0 N 787-2) MCHC; Normal (test code = 32.4 g/dl 31.0-36.0 N 40317-9) RDW; Normal (test code = 13.5 % 11.0-15.0 N 788-0) PLATELET COUNT; Above High 418 {Thousand/u} 140-400 Threshold (test code = 777-3) MPV; Normal (test code = 10.3 fL 7.5-12.5 N 35642-6) ABSOLUTE NEUTROPHILS (test 5132 {cells/uL} 0609-1814 N code = ABSOLUTE NEUTROPHILS) ABSOLUTE LYMPHOCYTES (test 1475 {cells/uL} 5619-9070 N code = ABSOLUTE LYMPHOCYTES) ABSOLUTE MONOCYTES (test 453 {cells/uL} 200-900 N code = ABSOLUTE MONOCYTES) ABSOLUTE EOSINOPHILS (test 168 {cells/uL} 15-500 N code = ABSOLUTE EOSINOPHILS) ABSOLUTE BASOPHILS (test 73 {cells/uL} 0-200 N code = ABSOLUTE BASOPHILS) NEUTROPHILS (test code = 70.3 % N NEUTROPHILS) LYMPHOCYTES (test code = 20.2 % N LYMPHOCYTES) MONOCYTES; Normal (test 6.2 % N code = 65725-7) EOSINOPHILS; Normal (test 2.3 % N code = 44936-0) BASOPHILS; Normal (test 1.0 % N code = 20102-7) [facility][Q] JEOVANNY IFA SCREEN W/REFL TO TITER AND PATTERN, [id number] 10:50:00 Test Item Value Reference Range Interpretation Comments JEOVANNY SCREEN, IFA NEGATIVE NEGATIVE N JEOVANNY IFA is a first line screen (test code = for detecting t hepresence of JEOVANNY SCREEN, up to approxima tely 150 IFA) autoantibodies invarious autoimmune dise ases. A negative JEOVANNY IF A resultsuggests an JEOVANNY-associated autoimmune disease is notp resent at this time, but is no t definitive. If thereis high clinical suspicion for S jogren's syndrome,testin g for anti-SS-A/Ro an tibody should be considered.A nti-Kylah-1 antibody should be considered for clinicallys uspected inflammatory my opathies. AC-0: Negative [employer] Machine Operator ational Consensus on AN A Patterns(https: //doi.org/10pikq-5960-35 52) For additional info rmation, please refer tohttp://educat ion.[employer]o TuCreaz.com Applications.com/faq/F AQ177(This link is being provid ed for informational/e ducational purposes only.) [facility][QL] RHEUMATOID [id number] 10:50:00 Test Item Value Reference Range Interpretation Comments RHEUMATOID FACTOR (test code = <14 <14 N RHEUMATOID FACTOR) [facility][QL] C-REACTIVE [id number] 10:50:00 Test Item Value Reference Range Interpretation Comments C-REACTIVE PROTEIN (test code = 3.0 mg/L <8.0 N C-REACTIVE PROTEIN) [facility][Q] HEPATITIS B SURFACE ANTIGEN W/REFL [id number] 10:50:00 Test Item Value Reference Range Interpretation Comments HEPATITIS B SURFACE ANTIGEN; NON-REACTIVE NON-REACTIVE N Normal (test code = 5195-3) [facility]] HEPATITIS C [id number] 10:50:00 Test Item Value Reference Range Interpretation Comments HEPATITIS C NON-REACTIVE NON-REACTIVE N ANTIBODY; Normal (test code = 02285-6) SIGNAL TO CUT-OFF 0.02 <1.00 N HCV antibo dy was (test code = SIGNAL non-reac tive. There TO CUT-OFF) is no laborator y evidence of HCV infection. In m ost cases, no furth er action is requi red. However,if rece nt HCV exposure is suspected, a te [place] HCV RNA([place] [address]) is sugge sted. For additional information ple ase refer tohttp://educat ion.[employer] estdiagnostics. com/fa q/XHC45w7(This link is being provid ed for informational/e ducati onal purposes o nly.) [facility][Q] QUANTIFERON( R)-TB GOLD PLUS, 1 [id number] 10:50:00 Test Item Value Reference Range Interpretation Comments QUANTIFERON( NEGATIVE NEGATIVE N Negative test r esult. M. R)-TB GOLD tuberculosis co mplex PLUS, 1 TUBE infection unlik sarah. (test code = QUANTIFERON( R)-TB GOLD PLUS, 1 TUBE) NIL (test code 0.03 {IU/ml} N = NIL) MITOGEN-NIL >10.00 N (test code = MITOGEN-NIL) TB1-NIL (test 0.00 {IU/ml} N code = TB1-NIL) TB2-NIL (test 0.00 {IU/ml} N The Nil tube v alue reflects code = the background TB2-NIL) interferongamma immune response of the patient's blood sample.Th is value has been subtracted from the patient'sdispla yed TB and Mitogen results . Lower than expected result s with the Mitogen tubepre vent false-negative Quantiferon readings bydete cting a patient with a potential immunesuppressi ve condition and/or suboptim al pre-analyticals pecimen handling. The T B1 Antigen tube is coated with theM. tuberculosis-sp ecific antigens design ed to elicitresponses from TB antigen primed CD4+ helperT-lymphoc ytes. The TB2 Antigen tub e is coated with theM. tuberculosis-sp ecific antigens design ed to elicitresponses from TB antigen primed CD4+ helper and CD8+cytotox ic T-lymphocytes. For additional info rmation, please refer tohttps://educa AngioChemon.[employer]/f aq/VJY616(Th is link is zahida pacheco provided for informational/e ducational purposes only.) [facility][QL] SJOGRENS ANTIBODIES (SS-A,SS-B)2019-05-25 10:50:00 Test Item Value Reference Range Interpretation Comments SJOGRENS ANTIBODY (SS-A) (test code <1.0 NEG <1.0 NEG N = SJOGRENS ANTIBODY (SS-A)) SJOGRENS ANTIBODY (SS-B) (test code <1.0 NEG <1.0 NEG N = SJOGRENS ANTIBODY (SS-B)) [facility][Q] CYCLIC CITRULLINATED PEPTIDE (CCP) AB (IGG)2019-05-25 10:50:00 Test Item Value Reference Range Interpretation Comments CYCLIC CITRULLINATED <16 N Referen ce PEPTIDE (CCP) AB (IGG) Range Negative: <20Weak (test code = CYCLIC Positive : CITRULLINATED PEPTIDE 20-39M oderate (CCP) AB (IGG)) Positive: 40 -59Strong Positive: >59 [facility][QL] HLA-B27, DNA [id number] 10:50:00 Test Item Value Reference Range Interpretation Comments HLA-B27 (test code Negative Negative = HLA-B27) RESULTS REVIEWED see note Newton Zhao, BY: (test code = Ph.D.,[facility] Director, RESULTS REVIEWED Molecular G enetics The B27 BY:) allele group of the HLA-B locus is presen tin 2 to 9% of the general population. About 20% ofHLA -B27 carriers develo p autoimmune disordersinclud ing Ankylosing Spon dylitis (), ReactiveA rthritis, Psoriatic Arthr itis, Undifferentiate dOligoarthri tis, Uveitis, o r Inflammatory Axel welDisease. The highest ass ociation is with , wherea pproximately 95% of patie nts are HLA-B27 positiv e.Genetic counseling as n eeded. Typing performe d by PCR and hybridization w ith sequencespecifi c oligonucleotide probes (SSO) using the FDA-cleared LABType(R) SSO Kit. [facility]
--- NOTE | 2022-05-23 19:13 | RAD REPORT ---
EXAM DESCRIPTION: RAD - Foot Left 3 View - 05/23/2022 6:59 pm CLINICAL HISTORY: PAIN COMPARISON: No comparisons FINDINGS/IMPRESSION: No acute fracture. No malalignment. No significant focal degenerative changes. A cannulated screw traverses the medial malleolus.
--- NOTE | 2022-05-23 19:17 | EDPHYS ---
Physician Documentation [facility] Name: Miya Balderrama Age: 21 yrs Sex: Female : 2000 Arrival Date: 05/23/2022 Time: 17:33 Bed 11 Private MD: Conrado Simms HPI: 05/23 18:32 This 21 yrs old Female presents to ER via Ambulatory with complaints of Ankle Injury. snw 18:32 The patient presents with pain, swelling, tenderness. The complaints affect the lateral snw side of left foot. Onset: The symptoms/episode began/occurred suddenly, today. Associated signs and symptoms: Pertinent positives: swelling, of the lateral side of left foot. Severity of symptoms: At their worst the symptoms were moderate. The patient has experienced similar episodes in the past, several times. Pt is 30+ wks , no abd trauma, no bleeding. Historical: - Allergies: 18:50 No Known Allergies; hb - Home Meds: 18:50 Vitamin Oral tab 1 tab once daily [Active]; hb - PMHx: 18:50 Rheumatoid Arthritis; hb - Immunization history:: Client reports having NOT received the Covid vaccine. - Social history:: Smoking status: Patient denies any tobacco usage or history of. ROS: 18:32 Constitutional: Negative for fever, chills, and weight loss, Eyes: Negative for injury, snw pain, redness, and discharge, ENT: Negative for injury, pain, and discharge, Neck: Negative for injury, pain, and swelling, Cardiovascular: Negative for chest pain, palpitations, and edema, Respiratory: Negative for shortness of breath, cough, wheezing, and pleuritic chest pain, Abdomen/GI: Negative for abdominal pain, nausea, vomiting, diarrhea, and constipation, Back: Negative for injury and pain, : Negative for injury, bleeding, discharge, and swelling, Skin: Negative for injury, rash, and discoloration, Neuro: Negative for headache, weakness, numbness, tingling, and seizure, Psych: Negative for depression, anxiety, suicide ideation, homicidal ideation, and hallucinations. 18:32 MS/extremity: Positive for injury or acute deformity, decreased range of motion, swelling, tenderness, of the lateral side of left foot. Exam: 18:30 Constitutional: This is a well developed, well nourished patient who is awake, alert, snw and in no acute distress. Head/Face: Normocephalic, atraumatic. Cardiovascular: Regular rate and rhythm with a normal S1 and S2. No gallops, murmurs, or rubs. Normal PMI, no JVD. No pulse deficits. Respiratory: Lungs have equal breath sounds bilaterally, clear to auscultation and percussion. No rales, rhonchi or wheezes noted. No increased work of breathing, no retractions or nasal flaring. Abdomen/GI: Soft, non-tender, with normal bowel sounds. No distension or tympany. No guarding or rebound. No evidence of tenderness throughout. Gravid Skin: Warm, dry with normal turgor. Normal color with no rashes, no lesions, and no evidence of cellulitis. Neuro: Awake and alert, GCS 15, oriented to person, place, time, and situation. Cranial nerves II-XII grossly intact. Motor strength 5/5 in all extremities. Sensory grossly intact. Cerebellar exam normal. Normal gait. Psych: Awake, alert, with orientation to person, place and time. Behavior, mood, and affect are within normal limits. 18:30 Musculoskeletal/extremity: Extremities: grossly normal except: noted in the lateral side of left foot: swelling, tenderness, pt had surgery on that ankle at age 15. Walking today and twisted foot/ankle, painful to bear weight to foot, ROM: limited active range of motion due to pain, in the left lateral malleolus, Circulation is intact in all extremities. Sensation intact. Weight bearing: can bear weight with assistance only. Vital Signs: 17:56 BP 125 / 74; Pulse 99; Resp 16; Temp 98.0; Pulse Ox 99% ; Weight 77.11 kg; Height 5 ft. kr3 0 in. (152.40 cm); Pain 5/10; 17:56 Body Mass Index 33.20 (77.11 kg, 152.40 cm) kr3 MDM: 18:06 Patient medically screened. snw 19:20 Data reviewed: vital signs, nurses notes. Data interpreted: Pulse oximetry: on room air snw is 99 %. Interpretation: normal. Counseling: I had a detailed discussion with the patient and/or guardian regarding: the historical points, exam findings, and any diagnostic results supporting the discharge/admit diagnosis, radiology results, the need for outpatient follow up, to return to the emergency department if symptoms worsen or persist or if there are any questions or concerns that arise at home. Special discussion: Based on the history and exam findings, there is no indication for further emergent testing or inpatient evaluation. I discussed with the patient/guardian the need to see the primary care provider for further evaluation of the symptoms. 05/23 18:25 Order name: Foot Left 3 View XRAY; Complete Time: 19:15 snw 05/23 19:16 Order name: Post-op shoe; Complete Time: 19:29 snw Administered Medications: No medications were administered Disposition Summary: 05/23/22 19:16 Discharge Ordered Location: Home snw Condition: Stable snw Diagnosis - Other sprain of left foot snw Followup: snw - With: Emergency Department - When: As needed - Reason: Worsening of condition Followup: snw - With: Private Physician - When: 2 - 3 days - Reason: Recheck today's complaints, Continuance of care, Re-evaluation by your physician Discharge Instructions: - Discharge Summary Sheet snw - Foot Sprain snw - RICE Therapy for Routine Care of Injuries snw - Activity Restriction During snw - How to Use a Cast Shoe snw Forms: - Medication Reconciliation Form snw - Thank You Letter snw - Antibiotic Education snw - Prescription Opioid Use snw Signatures: Dispatcher [employer] Alesia Domingo FNP-C [employer]ICE SUPERVISOR-Csnw Montse Humphreys, RN RN Marizol Nam RN RN kr3
--- NOTE | 2022-05-23 19:17 | ER ---
Nurse's Notes [facility] Name: Miya [facility] Age: 21 yrs Sex: Female : 2000 Arrival Date: 05/23/2022 Time: 17:33 Bed 11 Private MD: Diagnosis: Other sprain of left foot Presentation: 05/23 17:56 Chief complaint: Patient states: Rolled L ankle at 2 PM today. 31 weeks , no kr3 abd pain. Coronavirus screen: Vaccine status: Patient reports being unvaccinated. Client denies travel out of the [place] in the last 14 days. At this time, the client does not indicate any symptoms associated with coronavirus-19. Ebola Screen: Patient denies travel to an Ebola-affected area in the 21 days before illness onset. Initial Sepsis Screen: Does the patient meet any 2 criteria? HR > 90 bpm. No. Patient's initial sepsis screen is negative. Does the patient have a suspected source of infection? No. Patient's initial sepsis screen is negative. Risk Assessment: Do you want to hurt yourself or someone else? Patient reports no desire to harm self or others. Onset of symptoms was May 23, 2022. 17:56 Method Of Arrival: Ambulatory kr3 17:56 Acuity: GERARD 4 kr3 Triage Assessment: 17:57 General: Appears in no apparent distress. Behavior is calm, cooperative, appropriate kr3 for age. Pain: Complains of pain in L ankle Quality of pain is described as aching. Musculoskeletal: Reports pain in L ankle. Historical: - Allergies: 18:50 No Known Allergies; hb - Home Meds: 18:50 Vitamin Oral tab 1 tab once daily [Active]; hb - PMHx: 18:50 Rheumatoid Arthritis; hb - Immunization history:: Client reports having NOT received the Covid vaccine. - Social history:: Smoking status: Patient denies any tobacco usage or history of. Screenin:50 Abuse screen: Denies threats or abuse. Denies injuries from another. Nutritional hb screening: No deficits noted. Tuberculosis screening: No symptoms or risk factors identified. Fall Risk None identified. Assessment: 18:49 General: Appears in no apparent distress. Behavior is calm, cooperative. Pain: Pain hb currently is 5 out of 10 on a pain scale. Neuro: Level of Consciousness is awake, alert, obeys commands, Oriented to person, place, time, situation. Cardiovascular: Patient's skin is warm and dry. Respiratory: Respiratory effort is even, unlabored, Respiratory pattern is regular, symmetrical. GI: No signs and/or symptoms were reported involving the gastrointestinal system. : No signs and/or symptoms were reported regarding the genitourinary system. EENT: No signs and/or symptoms were reported regarding the EENT system. Derm: Skin is pink, warm \T\ dry. Musculoskeletal: Reports left ankle pain. Vital Signs: 17:56 BP 125 / 74; Pulse 99; Resp 16; Temp 98.0; Pulse Ox 99% ; Weight 77.11 kg; Height 5 ft. kr3 0 in. (152.40 cm); Pain 5/10; 17:56 Body Mass Index 33.20 (77.11 kg, 152.40 cm) kr3 ED Course: 17:33 Patient arrived in ED. rg4 17:34 Alesia Miller FNP-C [facility]. snw 17:34 Conrado Nash MD is Attending Physician. snw 17:56 Arm band placed on. kr3 17:57 Triage completed. kr3 18:03 Patient placed in an exam room, on a stretcher. kr3 18:49 Montse Humphreys, MALIK is Primary Nurse. hb 18:50 Patient has correct armband on for positive identification. hb 18:56 Foot Left 3 View XRAY In Process Unspecified. EDMS 19:41 No provider procedures requiring assistance completed. Patient did not have IV access hb during this emergency room visit. Administered Medications: No medications were administered Medication: 18:50 VIS not applicable for this client. hb Outcome: 19:16 Discharge ordered by . snw 19:41 Discharged to home ambulatory. hb 19:41 Condition: stable 19:41 Discharge instructions given to patient, Instructed on discharge instructions, follow up and referral plans. medication usage, Demonstrated understanding of instructions, follow-up care, medications. 19:41 Patient left the ED. hb Signatures: Dispatcher [employer] EDMS Alesia Miller FNP-C FNP-CsnMontse Golden RN Lary Vuong rg4 Marizol Nam RN RN kr3
[2022-05-23 20:54] VITALS: BP 125/74; TEMP 98; O2SAT 99
== END 2022-05-23 19:41 | disposition home or self-care (01) ==
LOC: ER 17:30
DX: O9A.213 Injury, poisoning and certain other consequences of external causes complicating pregnancy, third trimester (principal); S93.692A Other sprain of left foot, initial encounter; Z3A.30 30 weeks gestation of pregnancy
CPT/HCPCS: 99283